=== PATIENT | female | born 1965 | race Caucasian/White ===

== ENCOUNTER 2019-07-28 21:08 | Emergency (ER) | payer MEDICAID ==
[~2019-07-28] VITALS: Ht 154.9 cm; Wt 81.0 kg
[~2019-07-28 21:08] MED LIST: HYDR-4353 PO; IBUP-1051 PO; KETO10TA2 PO; PHEN-716 PO; PHEN118L19 PO
[2019-07-28 21:12] VITALS: BP 147/92
--- NOTE | 2019-07-28 21:53 | NUR ---
PT STATED THTA SHE " HAS GRANDCHILDREN TO CARE FOR AND SHE DOESNT HAVE TIME TO BE SEEN " AND PROCEEDED TO GET UP AND START TO LEAVE. ENCOURAGED PT TO BE SEEN , BUT PT STATES THAT THE "PIMPLE IN HER NOSE , MUST OF JUST POPPED WHILE SHE WAITS, AND SHE FEELS LESS FACIAL PRESSURE AT THE SITE" AND WOULD LIKE TO LEAVE . EDUCATED PATIENT ON THE IMPORTANCE OF HAVING HER FACE EVALUATED, PT STILL REFUSING TO BE SEEN . WALKED TO HER CAR WHERE HER SON WAS WAITING AND LEFT NOTIFIED CARGE NURSE.
== END 2019-07-28 21:55 | disposition left against medical advice (07) ==
LOC: ER 21:08
DX: R22.0 Localized swelling, mass and lump, head (principal); Z53.21 Procedure and treatment not carried out due to patient leaving prior to being seen by health care provider

== ENCOUNTER 2020-05-14 16:57 | Emergency (ER) | payer MEDICAID ==
[~2020-05-14] VITALS: Ht 154.9 cm; Wt 90.9 kg
[2020-05-14 17:15] VITALS: BP 130/85
== END 2020-05-14 17:58 | disposition home or self-care (01) ==
LOC: ER 16:59
DX: M25.561 Pain in right knee (principal); F17.200 Nicotine dependence, unspecified, uncomplicated; Z87.440 Personal history of urinary (tract) infections; Z98.890 Other specified postprocedural states; Z56.0 Unemployment, unspecified; Z59.0 Homelessness; Z79.899 Other long term (current) drug therapy
CPT/HCPCS: 99282

== ENCOUNTER 2021-10-04 09:12 | Emergency (ER) | payer MEDICAID ==
[~2021-10-04] VITALS: Ht 157.5 cm; Wt 90.9 kg
[2021-10-04 09:39] LABS: BASOPHILS % (AUTO) 0.3 % (0-1); EOSINOPHILS # (AUTO) 0.1 X10'3 (0-0.9); EOSINOPHILS % (AUTO) 2.9 % (0-6); HEMATOCRIT 40.5 % (35.0-45.0); HEMOGLOBIN 13.7 g/dl (12.0-16.0); LYMPHOCYTES # (AUTO) 0.2 X10'3 (1.1-4.8); LYMPHOCYTES % (AUTO) 4.6 % (21-51); MEAN CORPUSCULAR HEMOGLOBIN 30.1 PG (27.0-31.0); MEAN CORPUSCULAR HGB CONC 33.7 g/dL (33.0-36.5); MEAN CORPUSCULAR VOLUME 89.2 FL (78-98); MEAN PLATELET VOLUME 7.4 FL (7.4-10.4); MONOCYTES # (AUTO) 0.4 X10'3 (0-0.9); MONOCYTES % (AUTO) 8.9 % (2-12); NEUTROPHILS # (AUTO) 4.2 X10'3 (1.8-7.7); NEUTROPHILS % (AUTO) 83.3 % (42-75); PLATELET COUNT 198 X10'3 (140-440); RED BLOOD COUNT 4.54 X10'6 (4.20-5.60); RED CELL DISTRIBUTION WIDTH 15.2 % (11.5-14.5); WHITE BLOOD COUNT 5.1 X10'3 (4.5-11.0)
[2021-10-04 10:06] LABS: ALANINE AMINOTRANSFERASE 39 U/L (12-78); ALBUMIN 3.7 G/DL (3.4-5.0); ALBUMIN/GLOBULIN RATIO 1.3 (1.1-1.5); ALKALINE PHOSPHATASE 103 IU/L (46-116); ANION GAP 8 (8-16); ASPARTATE AMINO TRANSFERASE 25 U/L (10-37); BILIRUBIN,TOTAL 0.3 MG/DL (0.1-1.0); BLOOD UREA NITROGEN 12 MG/DL (7-18); BUN/CREATININE RATIO 18.2 (6.6-38.0); CALCIUM 8.5 MG/DL (8.5-10.1); CHLORIDE 105 MMOL/L (99-107); CREATININE 0.66 MG/DL (0.40-0.90); GLUCOSE 108 MG/DL (70-104); POTASSIUM 3.8 MMOL/L (3.5-5.1); SODIUM 137 MMOL/L (135-145); TOTAL CARBON DIOXIDE 24.1 MMOL/L (24-32); TOTAL PROTEIN 6.5 G/DL (6.4-8.2); eGFR > 90 ML/MIN
[2021-10-04 10:46] VITALS: BP 109/63
[2021-10-04 10:56] LABS: CLARITY,URINE SLIGHTLY CLOUDY (Clear); COLOR,URINE YELLOW (Yellow); GLUCOSE, URINE NEGATIVE (Neg); KETONES,URINE NEGATIVE (Neg); LEUKOCYTE ESTERASE ,URINE NEGATIVE (Neg); NITRITES, URINE NEGATIVE (Neg); OCCULT BLOOD,URINE SMALL (Neg); PH,URINE 5.5 (4.8-8.0); PROTEIN,URINE NEGATIVE (Neg); UROBILINOGEN,URINE 0.2 E.U/dL (0.2-1.0)
[2021-10-04 11:01] LABS: UA COLLECTION TYPE CLN CATCH MIDSTREAM
[2021-10-04 11:05] LABS: BACTERIA,URINE 1+ /HPF (Neg); MUCUS STRANDS MODERATE /LPF (Neg); RBC,URINE 0-2 /HPF (0-2); SQUAMOUS EPITHELIAL CELL,UR MANY /LPF (FEW); WBC,URINE 0-4 /HPF (0-4)
[2021-10-04] MEDS ORDERED: ondansetron 4mg rapidly disintigrating tab PO ONE (11:40)
[2021-10-04] MEDS ORDERED: sulfamethoxazole/trimethoprim DS (800/160mg) tablet PO ONE (12:30)
[2021-10-04] MEDS ORDERED: SULF1TAB49 PO (12:37)
== END 2021-10-04 12:48 | disposition home or self-care (01) ==
LOC: ER 09:13
DX: N39.0 Urinary tract infection, site not specified (principal); R51.9 Headache, unspecified; F17.200 Nicotine dependence, unspecified, uncomplicated; Z59.00 Homelessness unspecified; Z56.0 Unemployment, unspecified; Z98.890 Other specified postprocedural states; Z79.899 Other long term (current) drug therapy
CPT/HCPCS: 36415; 80053; 81001; 83605; 84145; 85025; 87040; 99283